=== PATIENT | female | born 1960 | race Hispanic/Latino ===

== ENCOUNTER 2020-02-21 11:48 | Emergency (ER) | payer SELFPAY ==
[2020-02-21 12:16] LABS: BASOPHILS % (AUTO) 0.2 % (0.0-5.0); EOSINOPHILS % (AUTO) 2.4 % (0.0-8.0); HEMATOCRIT 39.3 % (36-48); LYMPHOCYTES % (AUTO) 31.9 % (21.0-51.0); MEAN CORPUSCULAR HEMOGLOBIN 29.4 pg (27.0-33.0); MEAN CORPUSCULAR HGB CONC 33.1 g/dL (32.0-36.0); MEAN CORPUSCULAR VOLUME 88.9 fL (79-99); MONOCYTES % (AUTO) 6.2 % (3.0-13.0); NEUTROPHILS % (AUTO) 59.1 % (40.0-77.0); PLATELET COUNT (AUTO) 148 K/uL (130-400); RED BLOOD CELL COUNT(AUTO) 4.42 MIL/uL (4.00-5.50); RED CELL DISTRIBUTION WIDTH 12.7 % (11.0-15.5); WHITE BLOOD COUNT (AUTO) 4.6 K/uL (4.8-10.8)
[2020-02-21] MEDS ORDERED: NITROGLYCERIN 1GM/1 INCH PACKET TD ONE (12:18)
[2020-02-21] MEDS ORDERED: ASPIRIN 325 MG TABLET ONE (12:18)
[2020-02-21 12:28] LABS: CREATININE 0.5 mg/dL (0.5-1.5); POTASSIUM 4.3 mmol/L (3.5-5.1)
[2020-02-21 12:30] LABS: INR 0.94 (0.85-1.15); PARTIAL THROMBOPLASTIN TIME 27.8 SEC (26.3-35.5); PROTHROMBIN TIME 10.2 SEC (9.6-11.6)
[2020-02-21 12:31] LABS: APPEARANCE,URINE Clear (CLEAR); BILIRUBIN,URINE Negative (NEGATIVE); COLOR,URINE Yellow (YELLOW); GLUCOSE, URINE (UA) 250 mg/dL (NEGATIVE); KETONES,URINE Negative (NEGATIVE); LEUKOCYTE ESTERASE ,URINE Trace (NEGATIVE); NITRATE,URINE Negative (NEGATIVE); OCCULT BLOOD,URINE Negative (NEGATIVE); PROTEIN,URINE Negative (NEGATIVE)
[2020-02-21 12:33] LABS: ALBUMIN 3.3 g/dL (3.5-5.0); BILIRUBIN,TOTAL 0.7 mg/dL (0.2-1.0); TOTAL PROTEIN, SERUM 7.1 g/dL (6.0-8.3)
[2020-02-21 12:50] LABS: BACTERIA,URINE None Seen /HPF (None Seen); MUCUS,URINE Rare LPF (None Seen); RBC,URINE None Seen /HPF (0-1)
[2020-02-21 12:51] LABS: B-TYPE NATRIURETIC PEPTIDE 139 pg/mL (0-100)
== END 2020-02-21 15:51 | disposition home or self-care (01) ==
LOC: EDH 11:48
DX: R07.9 Chest pain, unspecified (principal); R05 Cough; E11.65 Type 2 diabetes mellitus with hyperglycemia; I10 Essential (primary) hypertension; F32.9 Major depressive disorder, single episode, unspecified; E78.5 Hyperlipidemia, unspecified
CPT/HCPCS: 36415; 71045; 80053; 81001; 82550; 83605; 83880; 84484; 85025; 85610; 85730; 87040; 87804; 93005

== ENCOUNTER → 2022-11-21 | Outpatient (CLI) | payer SELFPAY ==
[~2022-11-21] MED LIST: BUPR-49 PO; DAPA5TAB PO; GLIP10TA9 PO; METF-446 PO; OMEP20CA12 PO; SITA100T12 PO
[2022-11-21 12:27] LABS: ALBUMIN 3.5 g/dL (3.5-5.0); CREATININE 0.6 mg/dL (0.5-1.5); POTASSIUM 4.1 mmol/L (3.5-5.1); TOTAL PROTEIN, SERUM 7.9 g/dL (6.0-8.3)
== END | disposition home or self-care (01) ==
LOC: LAB 10:42
PROVIDERS: ATTEND Student in an Organized Health Care Education/Training Program
DX: R07.9 Chest pain, unspecified (principal)
CPT/HCPCS: 36415; 80053

== ENCOUNTER → 2022-11-28 | Outpatient (CLI) | payer SELFPAY ==
[~2022-11-28] MED LIST changes: +CEFTAZIDIME PENTAHYDRATE 1 GM/VIAL ONE; +DOXYCYCLINE 100MG+NS 250ML 250 ML IV ONE; +INSULIN HUMULIN R 100 UNIT/ML 3ML ONE; +IOHEXOL 350 MG/ML 100ML INFUS..BTL IV ONE; +IPRATROPIUM/ALBUTEROL SULFATE 3 ML SOLUTION IH ONE; +SODIUM CHLORIDE 3% FOR INHALATION 4 ML/AMP VIAL.NEB IH ONE; +SOLU-MEDROL 40MG VIAL ONE
== END | disposition home or self-care (01) ==
LOC: RAH 11:01
PROVIDERS: ATTEND Student in an Organized Health Care Education/Training Program
DX: R07.9 Chest pain, unspecified (principal)
CPT/HCPCS: 75574; Q9967; J0713; J1815; J2920; J3490

== ENCOUNTER 2023-08-06 01:09 | Emergency (ER) | payer OTHER ==
[~2023-08-06] VITALS: Ht 170.2 cm; Wt 137.0 kg
[~2023-08-06 01:09] MED LIST changes: -CEFTAZIDIME PENTAHYDRATE 1 GM/VIAL ONE; -DOXYCYCLINE 100MG+NS 250ML 250 ML IV ONE; -INSULIN HUMULIN R 100 UNIT/ML 3ML ONE; -IOHEXOL 350 MG/ML 100ML INFUS..BTL IV ONE; -IPRATROPIUM/ALBUTEROL SULFATE 3 ML SOLUTION IH ONE; -SODIUM CHLORIDE 3% FOR INHALATION 4 ML/AMP VIAL.NEB IH ONE; -SOLU-MEDROL 40MG VIAL ONE
[2023-08-06 03:16] LABS: BASOPHILS # (AUTO) 0.01 K/uL (0.00-0.20); BASOPHILS % (AUTO) 0.2 % (0.0-5.0); EOSINOPHILS # (AUTO) 0.09 K/uL (0.00-0.70); EOSINOPHILS % (AUTO) 1.8 % (0.0-8.0); IMMATURE GRANULOCYTE ABSOLUTE 0.02 K/uL (0-1); LYMPHOCYTES # (AUTO) 2.1 K/uL (1.0-4.8); LYMPHOCYTES % (AUTO) 41.5 % (21.0-51.0); MEAN CORPUSCULAR HGB CONC 32.5 g/dL (32.0-36.0); MEAN CORPUSCULAR VOLUME 92.3 fL (79-99); MONOCYTES # (AUTO) 0.4 K/uL (0.1-1.0); MONOCYTES % (AUTO) 7.5 % (3.0-13.0); NEUTROPHILS # (AUTO) 2.5 K/uL (1.8-7.7); NEUTROPHILS % (AUTO) 48.6 % (40.0-77.0); PLATELET COUNT (AUTO) 154 K/uL (130-400); RED CELL DISTRIBUTION WIDTH 13.5 % (11.0-15.5)
[2023-08-06 03:25] LABS: APPEARANCE,URINE CLEAR (CLEAR); BILIRUBIN,URINE NEGATIVE (NEGATIVE); COLOR,URINE COLORLESS (YELLOW); GLUCOSE, URINE (UA) NEGATIVE (NEGATIVE); KETONES,URINE NEGATIVE (NEGATIVE); LEUKOCYTE ESTERASE ,URINE NEGATIVE Leu/uL (NEGATIVE); NITRATE,URINE NEGATIVE (NEGATIVE); OCCULT BLOOD,URINE NEGATIVE (NEGATIVE); PH,URINE 6.5 (5.0-8.0); PROTEIN,URINE NEGATIVE (NEGATIVE); UROBILINOGEN,URINE 0.2 mg/dL (0.2-1.0)
[2023-08-06 03:25] LABS: CREATININE 0.5 mg/dL (0.5-1.5); POTASSIUM 3.4 mmol/L (3.5-5.1)
[2023-08-06 03:27] LABS: ADD UA MICROSCOPIC NO
[2023-08-06 03:29] LABS: ALBUMIN 3.4 g/dL (3.5-5.0); BILIRUBIN,TOTAL 0.8 mg/dL (0.2-1.0); TOTAL PROTEIN, SERUM 7.3 g/dL (6.0-8.3)
[2023-08-06] MEDS ORDERED: DIAZEPAM 5 MG/ML 2 ML SYG IVP ONE (05:00)
[2023-08-06] MEDS ORDERED: MORPHINE 4 MG SYG IVP ONE (05:00)
[2023-08-06] MEDS ORDERED: METOCLOPRAMIDE 10 MG/2 ML VIAL IVP ONE (05:00)
[2023-08-06] MEDS ORDERED: 0.9%NACL 1000ML 1,000 ML IV ONE (05:00)
[2023-08-06] MEDS ORDERED: FAMOTIDINE 20MG VIAL IV ONE (05:00)
[2023-08-06] MEDS ORDERED: ASPIRIN 325MG TAB PO ONE (06:30)
[2023-08-06] MEDS ORDERED: NITROGLYCERIN 1GM OINT 1 INCH/1GM TD ONE (06:30)
[2023-08-06] MEDS ORDERED: CLOPIDOGREL 300MG TAB PO ONE (06:30)
[2023-08-06] MEDS ORDERED: ENOXAPARIN SODIUM 80 MG/0.8 ML SQ ONE (06:30)
[2023-08-06 09:30] VITALS: BP 124/59; PULSE 56; RESP 18; O2SAT 99
== END 2023-08-06 10:07 | disposition home or self-care (01) ==
LOC: EDH 01:09
DX: R10.84 Generalized abdominal pain (principal); R77.8 Other specified abnormalities of plasma proteins; E03.9 Hypothyroidism, unspecified; E11.9 Type 2 diabetes mellitus without complications; I10 Essential (primary) hypertension; J45.909 Unspecified asthma, uncomplicated; Z79.84 Long term (current) use of oral hypoglycemic drugs; Z79.899 Other long term (current) drug therapy; Z98.890 Other specified postprocedural states
CPT/HCPCS: 99285; 74176; 96374; 96375; 76705; 71045; 96361; 82550; 84484 ×2; 80053; 83690; 85025; 83605; 81003; 36415; 93005 ×2; 96372; J3490; J7030; J3360; J2270; J1650; J2765

== ENCOUNTER 2023-09-22 17:30 | Inpatient (IN) | payer OTHER ==
[~2023-09-22] VITALS: Ht 172.7 cm; Wt 127.5 kg
[2023-09-22 18:02] LABS: APPEARANCE,URINE CLEAR (CLEAR); BILIRUBIN,URINE NEGATIVE (NEGATIVE); COLOR,URINE COLORLESS (YELLOW); GLUCOSE, URINE (UA) NEGATIVE (NEGATIVE); KETONES,URINE NEGATIVE (NEGATIVE); LEUKOCYTE ESTERASE ,URINE NEGATIVE Leu/uL (NEGATIVE); NITRATE,URINE NEGATIVE (NEGATIVE); OCCULT BLOOD,URINE NEGATIVE (NEGATIVE); PROTEIN,URINE NEGATIVE (NEGATIVE); UROBILINOGEN,URINE 0.2 mg/dL (0.2-1.0)
[2023-09-22 18:05] LABS: ADD UA MICROSCOPIC YES
[2023-09-22 18:11] LABS: HEMATOCRIT 37.1 % (36-48); MEAN CORPUSCULAR HEMOGLOBIN 29.2 pg (27.0-33.0); MEAN CORPUSCULAR HGB CONC 31.5 g/dL (32.0-36.0); MEAN CORPUSCULAR VOLUME 92.5 fL (79-99); RED BLOOD CELL COUNT(AUTO) 4.01 MIL/uL (4.00-5.50); RED CELL DISTRIBUTION WIDTH 13.9 % (11.0-15.5)
[2023-09-22 18:14] LABS: SQUAMOUS EPITHELIAL CELL,UR RARE /HPF (0-2); WBC,URINE 0-1 /HPF (0-1)
[2023-09-22 18:19] LABS: CREATININE 0.8 mg/dL (0.5-1.5)
[2023-09-22 18:28] LABS: ALBUMIN 3.6 g/dL (3.5-5.0); BILIRUBIN,TOTAL 0.7 mg/dL (0.2-1.0); TOTAL PROTEIN, SERUM 7.7 g/dL (6.0-8.3)
[2023-09-22] MEDS ORDERED: DILTIAZEM 25MG INJ IVP ONE (19:00)
[2023-09-22] MEDS ORDERED: ENOXAPARIN SODIUM 80 MG/0.8 ML SQ ONE (19:00)
[2023-09-22] MEDS ORDERED: AMIODARONE 150MG VIAL IV ONE (20:52)
[2023-09-22] MEDS ORDERED: AMIODARONE 150MG VIAL 150 MG in DEXTROSE 5%-WATER 100 ML IV SCH (21:00)
[2023-09-22] MEDS ORDERED: DILTIAZEM 125 MG/25 ML INJ 125 MG in 0.9%NACL 100ML 100 ML IV SCH (21:30)
[2023-09-22] MEDS ORDERED: METOPROLOL TARTRATE 25 MG TAB PO ONE (22:00)
[2023-09-22] MEDS ORDERED: MORPHINE 4 MG SYG IV PRN (22:30)
[2023-09-22] MEDS ORDERED: MORPHINE 2 MG SYG IV PRN (22:30)
[2023-09-22] MEDS ORDERED: ONDANSETRON 4MG INJ IV PRN (22:30)
[2023-09-22] MEDS ORDERED: POTASSIUM CHLORIDE 20MEQ/100ML 100 ML IV PRN (22:30)
[2023-09-22] MEDS ORDERED: ACETAMINOPHEN 325 MG TAB PO PRN (22:30)
[2023-09-22] MEDS ORDERED: ASPIRIN 81MG CHEW TAB PO ONE (22:30)
[2023-09-22] MEDS ORDERED: NITROGLYCERIN 0.4 MG SL TAB SL PRN (22:30)
[2023-09-22 23:08] LABS: BASOPHILS # (AUTO) 0.02 K/uL (0.00-0.20); BASOPHILS % (AUTO) 0.4 % (0.0-5.0); EOSINOPHILS # (AUTO) 0.09 K/uL (0.00-0.70); EOSINOPHILS % (AUTO) 1.7 % (0.0-8.0); HEMATOCRIT 35.3 % (36-48); IMMATURE GRANULOCYTE ABSOLUTE 0.02 K/uL (0-1); LYMPHOCYTES # (AUTO) 2.2 K/uL (1.0-4.8); LYMPHOCYTES % (AUTO) 41.3 % (21.0-51.0); MEAN CORPUSCULAR HEMOGLOBIN 29.3 pg (27.0-33.0); MEAN CORPUSCULAR HGB CONC 31.7 g/dL (32.0-36.0); MEAN CORPUSCULAR VOLUME 92.4 fL (79-99); MONOCYTES # (AUTO) 0.4 K/uL (0.1-1.0); MONOCYTES % (AUTO) 7.1 % (3.0-13.0); NEUTROPHILS # (AUTO) 2.7 K/uL (1.8-7.7); NEUTROPHILS % (AUTO) 49.1 % (40.0-77.0); PLATELET COUNT (AUTO) 154 K/uL (130-400); RED BLOOD CELL COUNT(AUTO) 3.82 MIL/uL (4.00-5.50); RED CELL DISTRIBUTION WIDTH 14.1 % (11.0-15.5); WHITE BLOOD COUNT (AUTO) 5.4 K/uL (4.8-10.8)
[2023-09-22 23:18] LABS: INR 0.97 (0.85-1.15); PROTHROMBIN TIME 11.3 SEC (9.6-11.6)
[2023-09-22] MEDS ORDERED: HEPARIN 5,000 UNIT VIAL SQ PRN (23:30)
[2023-09-22] MEDS ORDERED: HEPARIN 25,000 UNITS/250ML D5W 250 ML IV SCH (23:30)
[2023-09-22 23:42] LABS: B-TYPE NATRIURETIC PEPTIDE 316 pg/mL (0-100)
[2023-09-23] VITALS (10 sets, daily range): BP systolic 125–162; BP diastolic 75–108; PULSE 54–158; RESP 18–20; O2SAT 100
[2023-09-23] MEDS: ACETAMINOPHEN 325 MG TAB PO PRN (00:38)
[2023-09-23] MEDS ORDERED: LOSA50TA64 PO (00:46)
[2023-09-23] MEDS ORDERED: HYDR100T27 PO (00:46)
[2023-09-23] MEDS ORDERED: LEVO50TA4 PO (00:46)
[2023-09-23] MEDS ORDERED: PIOG30TA70 PO (00:46)
[2023-09-23] MEDS ORDERED: GABA300S3 PO (00:46)
[2023-09-23] MEDS ORDERED: GABA-534 PO (00:46)
[2023-09-23] MEDS ORDERED: BENZ-226 PO (00:55)
[2023-09-23] MEDS ORDERED: CELE100 PO (00:55)
[2023-09-23] MEDS ORDERED: VITAD50000 PO (00:55)
[2023-09-23] MEDS ORDERED: CARV25TA PO (00:55)
[2023-09-23] MEDS ORDERED: HYDR25TA PO (00:55)
[2023-09-23 01:24] LABS: BASOPHILS # (AUTO) 0.01 K/uL (0.00-0.20); BASOPHILS % (AUTO) 0.2 % (0.0-5.0); EOSINOPHILS # (AUTO) 0.08 K/uL (0.00-0.70); EOSINOPHILS % (AUTO) 1.7 % (0.0-8.0); HEMATOCRIT 35.4 % (36-48); IMMATURE GRANULOCYTE ABSOLUTE 0.01 K/uL (0-1); LYMPHOCYTES # (AUTO) 2.2 K/uL (1.0-4.8); LYMPHOCYTES % (AUTO) 46.1 % (21.0-51.0); MEAN CORPUSCULAR HEMOGLOBIN 29.5 pg (27.0-33.0); MEAN CORPUSCULAR HGB CONC 31.6 g/dL (32.0-36.0); MEAN CORPUSCULAR VOLUME 93.2 fL (79-99); MONOCYTES # (AUTO) 0.3 K/uL (0.1-1.0); MONOCYTES % (AUTO) 6.9 % (3.0-13.0); NEUTROPHILS # (AUTO) 2.2 K/uL (1.8-7.7); NEUTROPHILS % (AUTO) 44.9 % (40.0-77.0); PLATELET COUNT (AUTO) 163 K/uL (130-400); RED CELL DISTRIBUTION WIDTH 14.1 % (11.0-15.5); WHITE BLOOD COUNT (AUTO) 4.8 K/uL (4.8-10.8)
[2023-09-23 01:32] LABS: HEMOGLOBIN A1C 7.6 % (4.0-6.0)
[2023-09-23 01:35] LABS: CREATININE 0.8 mg/dL (0.5-1.5); POTASSIUM 3.7 mmol/L (3.5-5.1)
[2023-09-23 01:47] LABS: MAGNESIUM 1.5 mg/dL (1.80-2.40); PHOSPHORUS 4.6 mg/dL (2.5-4.9); THYROID STIMULATING HORMONE 2.18 uIU/mL (0.36-3.74)
[2023-09-23] MEDS: MAGNESIUM 2GM PREMIX 50ML 50 ML IV PRN (04:23)
[2023-09-23] MEDS: KCL 20 MEQ ERTAB PO PRN ×2 (04:24→17:36)
[2023-09-23] MEDS: INSULIN HUMULIN R 100 UNIT/ML 3ML SQ SCH ×4 (06:25→20:06)
[2023-09-23] MEDS ORDERED: MAGNESIUM 2GM PREMIX 50ML 50 ML IV SCH (07:00)
[2023-09-23] MEDS ORDERED: ENOXAPARIN SODIUM 100 MG/1 ML SQ SCH (09:00)
[2023-09-23] MEDS: FAMOTIDINE 20MG TAB PO SCH (09:04)
[2023-09-23] MEDS: ASPIRIN 81MG CHEW TAB PO SCH (09:04)
[2023-09-23] MEDS ORDERED: LACTULOSE 20 GM/30 ML UDCUP PO ONE (14:30)
[2023-09-23] MEDS ORDERED: METOPROLOL SUCCINATE 50 MG TAB.SR.24H PO ONE (14:30)
[2023-09-23 15:09] LABS: AMPHET/METH SCREEN,URINE NEGATIVE (NEGATIVE); BARBITURATE SCREEN, URINE NEGATIVE (NEGATIVE); BENZODIAZEPINES SCREEN,URINE NEGATIVE (NEGATIVE); CANNABINOID SCREEN,URINE NEGATIVE (NEGATIVE); COCAINE SCREEN,URINE NEGATIVE (NEGATIVE); OPIATE SCREEN,URINE NEGATIVE (NEGATIVE); PHENCYCLIDINE SCREEN,URINE NEGATIVE (NEGATIVE)
[2023-09-23] MEDS ORDERED: REGADENOSON 0.4 MG/5 ML PF SYG IVP SCH (19:00)
[2023-09-23] MEDS: APIXABAN 5 MG TABLET PO SCH (20:20)
[2023-09-23] MEDS ORDERED: METOPROLOL TARTRATE 1 MG/ML 5ML VIAL IV ONE (23:00)
[2023-09-24] VITALS (11 sets, daily range): BP systolic 114–163; BP diastolic 69–112; PULSE 95–132; RESP 16–20; O2SAT 95–98
[2023-09-24] MEDS ORDERED: AMIODARONE 900MG VIAL 540 MG in DEXTROSE 5%-WATER 300 ML IV STA (00:02)
[2023-09-24] MEDS ORDERED: AMIODARONE 900MG VIAL 360 MG in DEXTROSE 5%-WATER 200 ML IV SCH (00:30)
[2023-09-24 03:53] LABS: ALBUMIN 3.4 g/dL (3.5-5.0); BILIRUBIN,TOTAL 1.3 mg/dL (0.2-1.0); CREATININE 0.8 mg/dL (0.5-1.5); HEMATOCRIT 37.1 % (36-48); MAGNESIUM 1.6 mg/dL (1.80-2.40); MEAN CORPUSCULAR HEMOGLOBIN 29.5 pg (27.0-33.0); MEAN CORPUSCULAR HGB CONC 31.5 g/dL (32.0-36.0); MEAN CORPUSCULAR VOLUME 93.5 fL (79-99); POTASSIUM 4.2 mmol/L (3.5-5.1); RED BLOOD CELL COUNT(AUTO) 3.97 MIL/uL (4.00-5.50); TOTAL PROTEIN, SERUM 7.5 g/dL (6.0-8.3); WHITE BLOOD COUNT (AUTO) 6.4 K/uL (4.8-10.8)
[2023-09-24] MEDS: INSULIN HUMULIN R 100 UNIT/ML 3ML SQ SCH ×4 (07:24→20:33)
[2023-09-24] MEDS: ASPIRIN 81MG CHEW TAB PO SCH (08:19)
[2023-09-24] MEDS: APIXABAN 5 MG TABLET PO SCH ×3 (08:19→20:21)
[2023-09-24] MEDS: FAMOTIDINE 20MG TAB PO SCH ×2 (08:20→10:56)
[2023-09-24] MEDS ORDERED: METOPROLOL SUCCINATE 50 MG TAB.SR.24H PO SCH ×2 (09:00→09:30)
[2023-09-24] MEDS: ACETAMINOPHEN 325 MG TAB PO PRN (10:56)
[2023-09-24] MEDS: FUROSEMIDE 20MG VIAL IV SCH ×2 (10:58→22:50)
[2023-09-24] MEDS: MAGNESIUM 2GM PREMIX 50ML 50 ML IV PRN (11:00)
[2023-09-24] MEDS ORDERED: MAGNESIUM 2GM PREMIX 50ML 50 ML IV SCH (11:30)
[2023-09-24] MEDS: METOPROLOL TARTRATE 25 MG TAB PO SCH ×2 (13:41→20:21)
[2023-09-25] VITALS (24 sets, daily range): BP systolic 108–167; BP diastolic 59–114; PULSE 67–137; RESP 13–35; O2SAT 96–99
[2023-09-25 04:48] LABS: HEMATOCRIT 35.6 % (36-48); MEAN CORPUSCULAR HEMOGLOBIN 29.5 pg (27.0-33.0); RED BLOOD CELL COUNT(AUTO) 3.87 MIL/uL (4.00-5.50); WHITE BLOOD COUNT (AUTO) 5.8 K/uL (4.8-10.8)
[2023-09-25 05:17] LABS: ALBUMIN 3.6 g/dL (3.5-5.0); CREATININE 0.8 mg/dL (0.5-1.5); MAGNESIUM 1.3 mg/dL (1.80-2.40); POTASSIUM 3.1 mmol/L (3.5-5.1); TOTAL PROTEIN, SERUM 7.9 g/dL (6.0-8.3)
[2023-09-25] MEDS: KCL 20 MEQ ERTAB PO PRN (05:30)
[2023-09-25] MEDS: MAGNESIUM 2GM PREMIX 50ML 50 ML IV PRN ×2 (05:32→09:45)
[2023-09-25] MEDS: INSULIN HUMULIN R 100 UNIT/ML 3ML SQ SCH ×4 (06:53→20:15)
[2023-09-25] MEDS: POTASSIUM CHLORIDE 10% ELIXIR 20 MEQ/15 ML UDCUP PO PRN ×2 (07:25→09:45)
[2023-09-25] MEDS ORDERED: POTASSIUM CHLORIDE 20MEQ/100ML 100 ML IV ONE (07:30)
[2023-09-25] MEDS ORDERED: MAGNESIUM 2GM PREMIX 50ML 50 ML IV SCH (07:30)
[2023-09-25] MEDS ORDERED: KCL 20 MEQ ERTAB PO ONE (07:30)
[2023-09-25 07:35] LABS: AMYLASE 18 U/L (25-115)
[2023-09-25] MEDS ORDERED: KCL 20 MEQ ERTAB PO SCH (09:00)
[2023-09-25 09:15] LABS: MAGNESIUM 1.7 mg/dL (1.80-2.40); POTASSIUM 3.8 mmol/L (3.5-5.1)
[2023-09-25] MEDS ORDERED: AMIODARONE 150MG VIAL 150 MG in DEXTROSE 5%-WATER 100 ML IV SCH (09:30)
[2023-09-25] MEDS ORDERED: AMIODARONE 900MG VIAL 360 MG in DEXTROSE 5%-WATER 200 ML IV SCH (09:30)
[2023-09-25] MEDS ORDERED: METOCLOPRAMIDE 10 MG/2 ML VIAL IVP ONE (09:30)
[2023-09-25] MEDS: AZITHROMYCIN 500MG+NS 250ML 250 ML IVPB SCH (09:44)
[2023-09-25] MEDS: FUROSEMIDE 20MG VIAL IV SCH (09:44)
[2023-09-25] MEDS: APIXABAN 5 MG TABLET PO SCH (09:44)
[2023-09-25] MEDS: FAMOTIDINE 20MG TAB PO SCH (09:44)
[2023-09-25] MEDS: ASPIRIN 81MG CHEW TAB PO SCH (09:44)
[2023-09-25] MEDS: METOPROLOL TARTRATE 25 MG TAB PO SCH (09:45)
[2023-09-25] MEDS: CEFTRIAXONE 1G VIAL IVPB SCH (10:53)
[2023-09-25] MEDS ORDERED: FUROSEMIDE 20MG VIAL IV ONE (12:00)
[2023-09-25] MEDS ORDERED: LIDOCAINE PF 100MG/5ML (2%) SYRINGE 5ML ONE (14:48)
[2023-09-25] MEDS ORDERED: PROPOFOL 10 MG/ML 20ML VIAL IV ONE (14:48)
[2023-09-25 15:21] LABS: SARS-CoV-2, RNA, NAAT NEGATIVE SARS CoV-2 (NEGATIVE)
[2023-09-25 15:22] LABS: INFLUENZA TYPE A Negative For Type A (NEGATIVE); INFLUENZA TYPE B Negative For Type B (NEGATIVE)
[2023-09-25] MEDS ORDERED: PHARMACY COMMUNICATION MISC SCH (15:30)
[2023-09-25] MEDS ORDERED: AMIODARONE 900MG VIAL 540 MG in DEXTROSE 5%-WATER 300 ML IV SCH (15:30)
[2023-09-25 15:47] LABS: ABG HCO3 26.5 mmol/L (21.0-28.0); ABG OXYGEN SATURATION 98.3 % (95.0-99.0); ABG PCO2 41 mmHg (32-45); ABG PH 7.429 (7.35-7.450); PO2, ARTERIAL BG 115.5 mmHg (83.0-108.0); VENT MODE, BG BIPAP 14-6 (ROOM AIR)
[2023-09-25] MEDS: DILTIAZEM 25MG INJ IVP ONE ×4 (18:20→19:17)
[2023-09-25] MEDS: DILTIAZEM 125 MG/25 ML INJ 125 MG in 0.9%NACL 100ML 100 ML IV SCH (19:20)
[2023-09-25] MEDS: FUROSEMIDE 40MG VIAL IV SCH (20:14)
[2023-09-25] MEDS: METOPROLOL TARTRATE 50 MG TAB PO SCH (20:15)
[2023-09-25] MEDS ORDERED: HEPARIN 5,000 UNIT VIAL IV SCH (22:30)
[2023-09-25] MEDS ORDERED: HEPARIN 5,000 UNIT VIAL ONE (22:33)
[2023-09-25] MEDS: HEPARIN 25,000 UNITS/250ML D5W 250 ML IV SCH (22:45)
[2023-09-26] VITALS (15 sets, daily range): BP systolic 114–157; BP diastolic 63–91; PULSE 66–119; RESP 12–24; O2SAT 95–99
[2023-09-26] MEDS: IPRATROPIUM 0.5 MG/2.5 ML INH IH SCH ×5 (00:21→23:11)
[2023-09-26 05:10] LABS: HEMATOCRIT 35.3 % (36-48); MEAN CORPUSCULAR HGB CONC 31.2 g/dL (32.0-36.0); MEAN CORPUSCULAR VOLUME 93.1 fL (79-99); RED BLOOD CELL COUNT(AUTO) 3.79 MIL/uL (4.00-5.50); WHITE BLOOD COUNT (AUTO) 5.3 K/uL (4.8-10.8)
[2023-09-26 05:23] LABS: INR 1.07 (0.85-1.15); PROTHROMBIN TIME 12.4 SEC (9.6-11.6)
[2023-09-26 05:32] LABS: ALBUMIN 3.3 g/dL (3.5-5.0); BILIRUBIN,TOTAL 1.6 mg/dL (0.2-1.0); CREATININE 0.9 mg/dL (0.5-1.5); MAGNESIUM 1.6 mg/dL (1.80-2.40); POTASSIUM 3.1 mmol/L (3.5-5.1); TOTAL PROTEIN, SERUM 7.5 g/dL (6.0-8.3)
[2023-09-26] MEDS: KCL 20 MEQ ERTAB PO PRN (05:40)
[2023-09-26 05:45] LABS: PARTIAL THROMBOPLASTIN TIME > 139.0 SEC (26.3-35.5)
[2023-09-26] MEDS: MAGNESIUM 2GM PREMIX 50ML 50 ML IV PRN (05:52)
[2023-09-26] MEDS: INSULIN HUMULIN R 100 UNIT/ML 3ML SQ SCH ×4 (07:30→20:14)
[2023-09-26] MEDS ORDERED: POTASSIUM CHLORIDE 20MEQ/100ML 100 ML IV ONE (07:30)
[2023-09-26] MEDS ORDERED: KCL 20 MEQ ERTAB PO ONE (08:30)
[2023-09-26] MEDS ORDERED: DILTIAZEM 180MG SR CAP PO SCH (09:00)
[2023-09-26] MEDS: AZITHROMYCIN 500MG+NS 250ML 250 ML IVPB SCH (09:24)
[2023-09-26] MEDS: FUROSEMIDE 40MG VIAL IV SCH ×2 (09:26→20:12)
[2023-09-26] MEDS: METOPROLOL TARTRATE 50 MG TAB PO SCH ×3 (09:34→20:12)
[2023-09-26] MEDS: FAMOTIDINE 20MG TAB PO SCH (09:34)
[2023-09-26] MEDS: ASPIRIN 81MG CHEW TAB PO SCH (09:34)
[2023-09-26] MEDS: KCL 20 MEQ ERTAB PO SCH (09:35)
[2023-09-26] MEDS: DILTIAZEM 125 MG/25 ML INJ 125 MG in 0.9%NACL 100ML 100 ML IV SCH (10:23)
[2023-09-26] MEDS: HEPARIN 25,000 UNITS/250ML D5W 250 ML IV SCH (12:34)
[2023-09-26] MEDS: CEFTRIAXONE 1G VIAL IVPB SCH (12:38)
[2023-09-26] MEDS ORDERED: WARFARIN SODIUM 5 MG TAB PO ONE ×2 (16:00→16:05)
[2023-09-26] MEDS ORDERED: GUAIFENESIN-DM 200/20 MG 10 ML PO PRN (22:15)
[2023-09-27] VITALS (14 sets, daily range): BP systolic 89–141; BP diastolic 53–81; PULSE 67–123; RESP 16–23; O2SAT 95–99
[2023-09-27] MEDS: HEPARIN 25,000 UNITS/250ML D5W 250 ML IV SCH ×2 (05:38→21:02)
[2023-09-27 06:34] LABS: HEMATOCRIT 34.8 % (36-48); MEAN CORPUSCULAR HEMOGLOBIN 29.3 pg (27.0-33.0); MEAN CORPUSCULAR HGB CONC 31.6 g/dL (32.0-36.0); MEAN CORPUSCULAR VOLUME 92.6 fL (79-99); RED BLOOD CELL COUNT(AUTO) 3.76 MIL/uL (4.00-5.50); RED CELL DISTRIBUTION WIDTH 13.9 % (11.0-15.5); WHITE BLOOD COUNT (AUTO) 4.3 K/uL (4.8-10.8)
[2023-09-27 06:46] LABS: INR 1.03 (0.85-1.15); PROTHROMBIN TIME 11.9 SEC (9.6-11.6)
[2023-09-27 06:52] LABS: ALBUMIN 3.4 g/dL (3.5-5.0); BILIRUBIN,TOTAL 1.5 mg/dL (0.2-1.0); CREATININE 0.8 mg/dL (0.5-1.5); MAGNESIUM 1.6 mg/dL (1.80-2.40); POTASSIUM 3.3 mmol/L (3.5-5.1); TOTAL PROTEIN, SERUM 7.6 g/dL (6.0-8.3)
[2023-09-27] MEDS: IPRATROPIUM 0.5 MG/2.5 ML INH IH SCH ×4 (07:14→23:32)
[2023-09-27] MEDS: INSULIN HUMULIN R 100 UNIT/ML 3ML SQ SCH ×4 (07:24→20:16)
[2023-09-27] MEDS: FAMOTIDINE 20MG TAB PO SCH (10:24)
[2023-09-27] MEDS: AZITHROMYCIN 500MG+NS 250ML 250 ML IVPB SCH (10:24)
[2023-09-27] MEDS: METOPROLOL TARTRATE 50 MG TAB PO SCH ×3 (10:24→20:13)
[2023-09-27] MEDS: FUROSEMIDE 40MG VIAL IV SCH ×2 (10:24→20:13)
[2023-09-27] MEDS: ASPIRIN 81MG CHEW TAB PO SCH (10:24)
[2023-09-27] MEDS: KCL 20 MEQ ERTAB PO SCH (10:27)
[2023-09-27] MEDS: DILTIAZEM 120MG SR CAP PO SCH (10:52)
[2023-09-27] MEDS: CEFTRIAXONE 1G VIAL IVPB SCH (12:37)
[2023-09-27] MEDS: POTASSIUM CHLORIDE 10% ELIXIR 20 MEQ/15 ML UDCUP PO PRN ×2 (20:14→22:17)
[2023-09-27] MEDS: MAGNESIUM 2GM PREMIX 50ML 50 ML IV SCH (20:15)
[2023-09-27] MEDS ORDERED: MAG/ALUM/SIMETH 30 ML UDCUP PO ONE (22:00)
[2023-09-28] VITALS (14 sets, daily range): BP systolic 109–137; BP diastolic 71–101; PULSE 53–124; RESP 15–22; O2SAT 95–100
[2023-09-28 04:08] LABS: BASOPHILS # (AUTO) 0.01 K/uL (0.00-0.20); BASOPHILS % (AUTO) 0.3 % (0.0-5.0); EOSINOPHILS # (AUTO) 0.15 K/uL (0.00-0.70); EOSINOPHILS % (AUTO) 4.2 % (0.0-8.0); HEMATOCRIT 34.4 % (36-48); IMMATURE GRANULOCYTE ABSOLUTE 0.01 K/uL (0-1); LYMPHOCYTES # (AUTO) 1.4 K/uL (1.0-4.8); LYMPHOCYTES % (AUTO) 38.9 % (21.0-51.0); MEAN CORPUSCULAR HEMOGLOBIN 29.2 pg (27.0-33.0); MEAN CORPUSCULAR HGB CONC 31.1 g/dL (32.0-36.0); MONOCYTES # (AUTO) 0.3 K/uL (0.1-1.0); MONOCYTES % (AUTO) 9.6 % (3.0-13.0); NEUTROPHILS # (AUTO) 1.7 K/uL (1.8-7.7); NEUTROPHILS % (AUTO) 46.7 % (40.0-77.0); PLATELET COUNT (AUTO) 151 K/uL (130-400); RED BLOOD CELL COUNT(AUTO) 3.66 MIL/uL (4.00-5.50); RED CELL DISTRIBUTION WIDTH 13.8 % (11.0-15.5); WHITE BLOOD COUNT (AUTO) 3.6 K/uL (4.8-10.8)
[2023-09-28 04:18] LABS: INR 0.98 (0.85-1.15); PROTHROMBIN TIME 11.4 SEC (9.6-11.6)
[2023-09-28 04:19] LABS: PARTIAL THROMBOPLASTIN TIME 80.6 SEC (26.3-35.5)
[2023-09-28 04:28] LABS: CREATININE 0.9 mg/dL (0.5-1.5); POTASSIUM 3.6 mmol/L (3.5-5.1)
[2023-09-28] MEDS: IPRATROPIUM 0.5 MG/2.5 ML INH IH SCH ×4 (06:23→23:48)
[2023-09-28] MEDS: INSULIN HUMULIN R 100 UNIT/ML 3ML SQ SCH ×4 (06:49→20:34)
[2023-09-28] MEDS ORDERED: KCL 20 MEQ ERTAB PO ONE (07:30)
[2023-09-28] MEDS: FUROSEMIDE 40MG VIAL IV SCH ×2 (08:29→20:37)
[2023-09-28] MEDS: ASPIRIN 81MG CHEW TAB PO SCH (08:30)
[2023-09-28] MEDS: FAMOTIDINE 20MG TAB PO SCH (08:30)
[2023-09-28] MEDS: METOPROLOL TARTRATE 50 MG TAB PO SCH (08:30)
[2023-09-28] MEDS: DILTIAZEM 120MG SR CAP PO SCH (08:31)
[2023-09-28] MEDS: AZITHROMYCIN 500MG+NS 250ML 250 ML IVPB SCH (08:32)
[2023-09-28] MEDS: KCL 20 MEQ ERTAB PO SCH (08:32)
[2023-09-28] MEDS ORDERED: METOPROLOL SUCCINATE 50 MG TAB.SR.24H PO SCH (09:30)
[2023-09-28] MEDS ORDERED: WARFARIN SODIUM 5 MG TAB PO ONE (09:30)
[2023-09-28 09:50] LABS: INR 1.01 (0.85-1.15); PROTHROMBIN TIME 11.7 SEC (9.6-11.6)
[2023-09-28 09:51] LABS: PARTIAL THROMBOPLASTIN TIME 72.3 SEC (26.3-35.5)
[2023-09-28] MEDS: HEPARIN 25,000 UNITS/250ML D5W 250 ML IV SCH ×2 (10:07→15:54)
[2023-09-29] VITALS (16 sets, daily range): BP systolic 104–176; BP diastolic 69–86; PULSE 46–72; RESP 16–24; O2SAT 96–98
[2023-09-29 03:55] LABS: BASOPHILS # (AUTO) 0.01 K/uL (0.00-0.20); BASOPHILS % (AUTO) 0.3 % (0.0-5.0); EOSINOPHILS # (AUTO) 0.13 K/uL (0.00-0.70); EOSINOPHILS % (AUTO) 3.7 % (0.0-8.0); HEMATOCRIT 31.8 % (36-48); IMMATURE GRANULOCYTE ABSOLUTE 0.01 K/uL (0-1); LYMPHOCYTES # (AUTO) 1.8 K/uL (1.0-4.8); LYMPHOCYTES % (AUTO) 49.7 % (21.0-51.0); MEAN CORPUSCULAR HEMOGLOBIN 29.5 pg (27.0-33.0); MEAN CORPUSCULAR HGB CONC 31.8 g/dL (32.0-36.0); MONOCYTES # (AUTO) 0.3 K/uL (0.1-1.0); MONOCYTES % (AUTO) 9.6 % (3.0-13.0); NEUTROPHILS # (AUTO) 1.3 K/uL (1.8-7.7); NEUTROPHILS % (AUTO) 36.4 % (40.0-77.0); NUCLEATED RED BLOOD CELLS 0.6 % (0.0-0.19); PLATELET COUNT (AUTO) 147 K/uL (130-400); RED BLOOD CELL COUNT(AUTO) 3.42 MIL/uL (4.00-5.50); WHITE BLOOD COUNT (AUTO) 3.6 K/uL (4.8-10.8)
[2023-09-29 04:07] LABS: INR 1.03 (0.85-1.15); PROTHROMBIN TIME 11.9 SEC (9.6-11.6)
[2023-09-29 04:19] LABS: ALBUMIN 3.1 g/dL (3.5-5.0); BILIRUBIN,TOTAL 0.5 mg/dL (0.2-1.0); CREATININE 0.9 mg/dL (0.5-1.5); MAGNESIUM 1.8 mg/dL (1.80-2.40); POTASSIUM 3.6 mmol/L (3.5-5.1)
[2023-09-29] MEDS: KCL 20 MEQ ERTAB PO PRN ×2 (05:24→09:27)
[2023-09-29] MEDS: IPRATROPIUM 0.5 MG/2.5 ML INH IH SCH ×4 (06:40→23:23)
[2023-09-29] MEDS: INSULIN HUMULIN R 100 UNIT/ML 3ML SQ SCH ×4 (07:16→20:43)
[2023-09-29] MEDS: FUROSEMIDE 40MG VIAL IV SCH (07:51)
[2023-09-29] MEDS: KCL 20 MEQ ERTAB PO SCH (07:56)
[2023-09-29] MEDS: FAMOTIDINE 20MG TAB PO SCH (07:56)
[2023-09-29] MEDS: MAGNESIUM 2GM PREMIX 50ML 50 ML IV SCH (08:30)
[2023-09-29] MEDS: DILTIAZEM 120MG SR CAP PO SCH (09:00)
[2023-09-29] MEDS: ASPIRIN 81MG CHEW TAB PO SCH (09:27)
[2023-09-29] MEDS: HEPARIN 25,000 UNITS/250ML D5W 250 ML IV SCH (14:51)
[2023-09-29] MEDS ORDERED: WARFARIN SODIUM 7.5 MG TAB PO SCH (21:00)
[2023-09-29] MEDS: METOPROLOL TARTRATE 25 MG TAB PO SCH (21:19)
[2023-09-29] MEDS ORDERED: MAGNESIUM HYDROXIDE 30 ML/UDCUP PO PRN (23:00)
[2023-09-30] VITALS (14 sets, daily range): BP systolic 140–190; BP diastolic 69–105; PULSE 45–64; RESP 18–22; O2SAT 96–100
[2023-09-30 04:40] LABS: BASOPHILS # (AUTO) 0.01 K/uL (0.00-0.20); BASOPHILS % (AUTO) 0.3 % (0.0-5.0); EOSINOPHILS # (AUTO) 0.11 K/uL (0.00-0.70); EOSINOPHILS % (AUTO) 3.2 % (0.0-8.0); HEMATOCRIT 32.6 % (36-48); IMMATURE GRANULOCYTE ABSOLUTE 0.01 K/uL (0-1); LYMPHOCYTES # (AUTO) 1.6 K/uL (1.0-4.8); LYMPHOCYTES % (AUTO) 47.1 % (21.0-51.0); MEAN CORPUSCULAR HEMOGLOBIN 29.4 pg (27.0-33.0); MEAN CORPUSCULAR HGB CONC 31.6 g/dL (32.0-36.0); MEAN CORPUSCULAR VOLUME 93.1 fL (79-99); MONOCYTES # (AUTO) 0.3 K/uL (0.1-1.0); MONOCYTES % (AUTO) 8.4 % (3.0-13.0); NEUTROPHILS # (AUTO) 1.4 K/uL (1.8-7.7); NEUTROPHILS % (AUTO) 40.7 % (40.0-77.0); PLATELET COUNT (AUTO) 162 K/uL (130-400); WHITE BLOOD COUNT (AUTO) 3.5 K/uL (4.8-10.8)
[2023-09-30 05:02] LABS: ALBUMIN 3.1 g/dL (3.5-5.0); BILIRUBIN,TOTAL 0.5 mg/dL (0.2-1.0); CREATININE 0.9 mg/dL (0.5-1.5); MAGNESIUM 1.9 mg/dL (1.80-2.40); POTASSIUM 4.4 mmol/L (3.5-5.1); TOTAL PROTEIN, SERUM 7.2 g/dL (6.0-8.3)
[2023-09-30 05:39] LABS: INR 1.03 (0.85-1.15); PROTHROMBIN TIME 11.1 SEC (9.6-11.6)
[2023-09-30] MEDS: INSULIN HUMULIN R 100 UNIT/ML 3ML SQ SCH ×4 (05:48→20:01)
[2023-09-30] MEDS: IPRATROPIUM 0.5 MG/2.5 ML INH IH SCH ×4 (06:42→23:30)
[2023-09-30] MEDS: FUROSEMIDE 20 MG TABLET PO SCH (09:42)
[2023-09-30] MEDS: FAMOTIDINE 20MG TAB PO SCH (09:42)
[2023-09-30] MEDS: ASPIRIN 81MG CHEW TAB PO SCH (09:43)
[2023-09-30] MEDS: METOPROLOL TARTRATE 25 MG TAB PO SCH ×2 (09:45→20:11)
[2023-09-30 16:20] LABS: INR 1.04 (0.85-1.15)
[2023-09-30 16:21] LABS: PARTIAL THROMBOPLASTIN TIME 69.7 SEC (26.3-35.5)
[2023-09-30] MEDS ORDERED: WARFARIN SODIUM 5 MG TAB PO SCH (21:00)
[2023-10-01] VITALS (17 sets, daily range): BP systolic 132–161; BP diastolic 65–101; PULSE 49–78; RESP 17–20; O2SAT 96–98
[2023-10-01] MEDS ORDERED: LOSARTAN 50 MG TABLET ONE (00:01)
[2023-10-01] MEDS ORDERED: HYDRALAZINE 25MG TABLET ONE (00:01)
[2023-10-01] MEDS ORDERED: LOSARTAN 50 MG TABLET PO SCH (00:30)
[2023-10-01] MEDS ORDERED: HYDRALAZINE 25MG TABLET PO SCH (00:30)
[2023-10-01] MEDS ORDERED: HYDRALAZINE 20MG/ML VIAL ONE (00:42)
[2023-10-01] MEDS ORDERED: HYDRALAZINE 20MG/ML VIAL IV PRN (01:00)
[2023-10-01] MEDS: HEPARIN 25,000 UNITS/250ML D5W 250 ML IV SCH (02:02)
[2023-10-01] MEDS: ACETAMINOPHEN 325 MG TAB PO PRN (03:43)
[2023-10-01 04:22] LABS: INR 1.09 (0.85-1.15); PROTHROMBIN TIME 12.6 SEC (9.6-11.6)
[2023-10-01 04:23] LABS: PARTIAL THROMBOPLASTIN TIME 71.1 SEC (26.3-35.5)
[2023-10-01] MEDS: INSULIN HUMULIN R 100 UNIT/ML 3ML SQ SCH ×4 (05:42→20:47)
[2023-10-01] MEDS: LEVOTHYROXINE 50 MCG TABLET PO SCH (05:49)
[2023-10-01] MEDS: IPRATROPIUM 0.5 MG/2.5 ML INH IH SCH ×4 (06:28→23:26)
[2023-10-01] MEDS: METOPROLOL TARTRATE 25 MG TAB PO SCH ×2 (09:00→20:51)
[2023-10-01] MEDS: FAMOTIDINE 20MG TAB PO SCH (09:36)
[2023-10-01] MEDS: HYDROCHLOROTHIAZIDE 25 MG TABLET PO SCH (09:36)
[2023-10-01] MEDS: ASPIRIN 81MG CHEW TAB PO SCH (09:36)
[2023-10-01] MEDS: HYDRALAZINE 25MG TABLET PO SCH ×2 (09:41→20:51)
[2023-10-01] MEDS: LOSARTAN 50 MG TABLET PO SCH ×2 (09:41→20:49)
[2023-10-01] MEDS: FUROSEMIDE 20 MG TABLET PO SCH (09:42)
[2023-10-01] MEDS: WARFARIN SODIUM 5 MG TAB PO SCH (16:38)
[2023-10-02] VITALS (12 sets, daily range): BP systolic 131–163; BP diastolic 77–92; PULSE 50–128; RESP 18–22; O2SAT 92–98
[2023-10-02] MEDS: INSULIN HUMULIN R 100 UNIT/ML 3ML SQ SCH ×4 (06:05→21:25)
[2023-10-02] MEDS: LEVOTHYROXINE 50 MCG TABLET PO SCH (06:09)
[2023-10-02] MEDS: IPRATROPIUM 0.5 MG/2.5 ML INH IH SCH ×4 (06:59→23:07)
[2023-10-02] MEDS: METOPROLOL TARTRATE 25 MG TAB PO SCH ×2 (08:21→21:36)
[2023-10-02] MEDS: FUROSEMIDE 20 MG TABLET PO SCH (08:38)
[2023-10-02] MEDS: HYDROCHLOROTHIAZIDE 25 MG TABLET PO SCH (08:38)
[2023-10-02] MEDS: FAMOTIDINE 20MG TAB PO SCH (08:38)
[2023-10-02] MEDS: LOSARTAN 50 MG TABLET PO SCH ×2 (08:38→21:36)
[2023-10-02] MEDS: HYDRALAZINE 25MG TABLET PO SCH ×2 (08:39→21:37)
[2023-10-02] MEDS: ASPIRIN 81MG CHEW TAB PO SCH (08:39)
[2023-10-02 10:03] LABS: INR 1.6 (0.85-1.15)
[2023-10-02] MEDS: WARFARIN SODIUM 5 MG TAB PO SCH (17:14)
[2023-10-02] MEDS: HEPARIN 25,000 UNITS/250ML D5W 250 ML IV SCH (21:40)
[2023-10-03] VITALS (9 sets, daily range): BP systolic 122–145; BP diastolic 76–83; PULSE 57–87; RESP 16–22; O2SAT 92–94
[2023-10-03] MEDS: INSULIN HUMULIN R 100 UNIT/ML 3ML SQ SCH ×2 (05:42→12:07)
[2023-10-03] MEDS: LEVOTHYROXINE 50 MCG TABLET PO SCH (06:03)
[2023-10-03] MEDS: IPRATROPIUM 0.5 MG/2.5 ML INH IH SCH ×2 (06:26→11:10)
[2023-10-03] MEDS: HYDRALAZINE 25MG TABLET PO SCH (09:12)
[2023-10-03] MEDS: HYDROCHLOROTHIAZIDE 25 MG TABLET PO SCH (09:13)
[2023-10-03] MEDS: FUROSEMIDE 20 MG TABLET PO SCH (09:13)
[2023-10-03] MEDS: LOSARTAN 50 MG TABLET PO SCH (09:13)
[2023-10-03] MEDS: FAMOTIDINE 20MG TAB PO SCH (09:13)
[2023-10-03] MEDS: ASPIRIN 81MG CHEW TAB PO SCH (09:13)
[2023-10-03 10:33] LABS: PARTIAL THROMBOPLASTIN TIME 66.6 SEC (26.3-35.5)
[2023-10-03 12:23] LABS: INR 3.38 (0.85-1.15)
[2023-10-03 12:25] LABS: PROTHROMBIN TIME 36.2 SEC (9.6-11.6)
[2023-10-03] MEDS ORDERED: WARF7.5T49 PO (15:20)
[2023-10-03] MEDS ORDERED: ASPI-1005 PO (15:20)
[2023-10-03] MEDS ORDERED: FURO20TA6 PO (15:20)
[2023-10-03] MEDS ORDERED: METO25 PO (15:20)
[2023-10-03] MEDS ORDERED: METOPROLOL TARTRATE 25 MG TAB PO SCH (21:00)
== END 2023-10-03 17:20 | disposition home or self-care (01) | DRG 291 ==
LOC: EDH 17:30 → EDHIP 17:31 → 2DH 09-23 00:01
PROVIDERS: ADMIT Internal Medicine; ATTEND Internal Medicine
PROC: 5A09357 Assistance with Respiratory Ventilation, Less than 24 Consecutive Hours, Continuous Positive Airway Pressure (ICD-10-PCS; principal; 2023-09-25)
PROC: B24BZZ4 Ultrasonography of Heart with Aorta, Transesophageal (ICD-10-PCS; 2023-09-25)
PROC: 5A09357 Assistance with Respiratory Ventilation, Less than 24 Consecutive Hours, Continuous Positive Airway Pressure (ICD-10-PCS; 2023-09-27)
PROC: 5A09357 Assistance with Respiratory Ventilation, Less than 24 Consecutive Hours, Continuous Positive Airway Pressure (ICD-10-PCS; 2023-09-29)
PROC: 5A09357 Assistance with Respiratory Ventilation, Less than 24 Consecutive Hours, Continuous Positive Airway Pressure (ICD-10-PCS; 2023-10-02)
DX: I11.0 Hypertensive heart disease with heart failure (principal); I50.43 Acute on chronic combined systolic (congestive) and diastolic (congestive) heart failure; J96.01 Acute respiratory failure with hypoxia; Z68.41 Body mass index [BMI] 40.0-44.9, adult; E11.9 Type 2 diabetes mellitus without complications; I48.91 Unspecified atrial fibrillation; I34.0 Nonrheumatic mitral (valve) insufficiency; E03.9 Hypothyroidism, unspecified; E66.01 Morbid (severe) obesity due to excess calories; E83.42 Hypomagnesemia; E78.5 Hyperlipidemia, unspecified; E87.6 Hypokalemia; F32.A Depression, unspecified; G47.33 Obstructive sleep apnea (adult) (pediatric); Z53.9 Procedure and treatment not carried out, unspecified reason; Z79.01 Long term (current) use of anticoagulants; Z79.82 Long term (current) use of aspirin; Z79.899 Other long term (current) drug therapy; Z82.0 Family history of epilepsy and other diseases of the nervous system; Z82.3 Family history of stroke; Z82.49 Family history of ischemic heart disease and other diseases of the circulatory system; Z82.5 Family history of asthma and other chronic lower respiratory diseases; Z83.3 Family history of diabetes mellitus
CPT/HCPCS: 36415; 36600; 71045; 76700; 78452; 80048; 80053; 80305; 81001; 82150; 82803; 82948; 83036; 83690; 83735; 83880; 84100; 84132; 84443; 84484; 85025; 85027; 85610; 85730; 86850; 86900; 86901; 87040; 87635; 87804; 87880; 93005; 93017; 93306; 93312; 94640; 94660; 94664; 96374; A9500; C1894; G0378; J0282; J0360; J0456; J0696; J1644; J1650; J1815; J1940; J2001; J2270; J2704; J2765; J2785; J3475; J3480; J3490; J7060; C1750

== ENCOUNTER → 2023-10-10 | Outpatient (CLI) | payer SELFPAY ==
[~2023-10-10] MED LIST changes: +ASPI-1005 PO; +BENZ-226 PO; -BUPR-49 PO; +CARV25TA PO; -DAPA5TAB PO; +FURO20TA6 PO; +GABA-534 PO; -GLIP10TA9 PO; +HYDR100T27 PO; +HYDR25TA PO; +LEVO50TA4 PO; +LOSA50TA64 PO; +METO25 PO; -OMEP20CA12 PO; +PIOG30TA70 PO; -SITA100T12 PO; +WARF7.5T49 PO
[2023-10-10 12:51] LABS: ALBUMIN 3.4 g/dL (3.5-5.0); BILIRUBIN,TOTAL 0.6 mg/dL (0.2-1.0); CREATININE 0.9 mg/dL (0.5-1.5); POTASSIUM 4.2 mmol/L (3.5-5.1); TOTAL PROTEIN, SERUM 7.5 g/dL (6.0-8.3)
== END | disposition home or self-care (01) ==
LOC: LAB 09:48
PROVIDERS: ATTEND Student in an Organized Health Care Education/Training Program
DX: R07.9 Chest pain, unspecified (principal)
CPT/HCPCS: 36415; 80053

== ENCOUNTER 2024-08-17 06:53 | Observation (INO) | payer BC, SELFPAY ==
[~2024-08-17] VITALS: Ht 172.7 cm; Wt 138.7 kg
[~2024-08-17 06:53] MED LIST changes: +HYDR100T15 PO; -HYDR100T27 PO
[2024-08-17] MEDS: LACTATED RINGERS 1000ML 1,000 ML IV ONE (07:42)
[2024-08-17 08:01] LABS: BASOPHILS # (AUTO) 0.01 K/uL (0.00-0.20); BASOPHILS % (AUTO) 0.2 % (0.0-5.0); EOSINOPHILS # (AUTO) 0.08 K/uL (0.00-0.70); EOSINOPHILS % (AUTO) 1.8 % (0.0-8.0); HEMATOCRIT 38.2 % (36-48); IMMATURE GRANULOCYTE ABSOLUTE 0.01 K/uL (0-1); LYMPHOCYTES # (AUTO) 1.6 K/uL (1.0-4.8); LYMPHOCYTES % (AUTO) 34.1 % (21.0-51.0); MEAN CORPUSCULAR HEMOGLOBIN 27.7 pg (27.0-33.0); MEAN CORPUSCULAR HGB CONC 31.7 g/dL (32.0-36.0); MEAN CORPUSCULAR VOLUME 87.4 fL (79-99); MONOCYTES # (AUTO) 0.3 K/uL (0.1-1.0); MONOCYTES % (AUTO) 5.9 % (3.0-13.0); NEUTROPHILS # (AUTO) 2.6 K/uL (1.8-7.7); NEUTROPHILS % (AUTO) 57.8 % (40.0-77.0); PLATELET COUNT (AUTO) 202 K/uL (130-400); RED BLOOD CELL COUNT(AUTO) 4.37 MIL/uL (4.00-5.50); RED CELL DISTRIBUTION WIDTH 15.2 % (11.0-15.5); WHITE BLOOD COUNT (AUTO) 4.6 K/uL (4.8-10.8)
[2024-08-17 08:16] LABS: INR 2.49 (0.85-1.15); PROTHROMBIN TIME 25.1 SEC (9.6-11.6)
[2024-08-17 08:23] LABS: CREATININE 0.8 mg/dL (0.5-1.0); MAGNESIUM 1.4 mg/dL (1.80-2.40); POTASSIUM 3.7 mmol/L (3.5-5.1)
[2024-08-17 08:37] LABS: B-TYPE NATRIURETIC PEPTIDE 167 pg/mL (0-100)
[2024-08-17] MEDS ORDERED: OMEP20CA12 PO (09:00)
[2024-08-17] MEDS ORDERED: WARF7.5T6 PO (09:00)
[2024-08-17] MEDS: MAGNESIUM 2GM PREMIX 50ML 50 ML IV ONE (09:39)
[2024-08-17 11:09] LABS: APPEARANCE,URINE CLEAR (CLEAR); BILIRUBIN,URINE NEGATIVE (NEGATIVE); COLOR,URINE LIGHT-YELLOW (YELLOW); GLUCOSE, URINE (UA) NEGATIVE (NEGATIVE); KETONES,URINE NEGATIVE (NEGATIVE); LEUKOCYTE ESTERASE ,URINE NEGATIVE Leu/uL (NEGATIVE); NITRATE,URINE NEGATIVE (NEGATIVE); OCCULT BLOOD,URINE NEGATIVE (NEGATIVE); PH,URINE 6.5 (5.0-8.0); PROTEIN,URINE NEGATIVE (NEGATIVE); UROBILINOGEN,URINE 0.2 mg/dL (0.2-1.0)
[2024-08-17 11:14] LABS: ADD UA MICROSCOPIC NO
[2024-08-17] MEDS ORDERED: PoTASSium chl 10% ELIXIR 20MEQ 20 MEQ/15 ML UDCUP PO PRN (12:00)
[2024-08-17] MEDS ORDERED: PoTASSium chloRIDE 20MEQ/100ML 100 ML IV PRN (12:00)
[2024-08-17] MEDS ORDERED: PoTASSium chloRIDE 20MEQ ER 20 MEQ ERTAB PO PRN (12:00)
[2024-08-17] MEDS ORDERED: DEXTROSE 50%-WATER 50 ML DISP.SYRIN IV PRN (12:00)
[2024-08-17] MEDS ORDERED: GLUCAGON 1MG KIT 1 MG ML IM PRN (12:00)
[2024-08-17 12:42] LABS: HEMOGLOBIN A1C 8.7 % (4.0-6.0)
[2024-08-17] MEDS: ENOXAPARIN SODIUM 120 MG/0.8ML SQ SCH (15:22)
[2024-08-17] MEDS: GABAPENTIN 300 MG CAPSULE PO SCH (15:22)
[2024-08-17] MEDS: furoSEMIDE 20MG VIAL IV SCH (15:23)
[2024-08-17] MEDS: nifeDIPine ER 30 MG TAB PO SCH (18:21)
[2024-08-17] MEDS: carVEDIlol 25 MG TABLET PO SCH (18:21)
[2024-08-17] MEDS: INSULIN humuLIN R 100 UNIT/ML 3ML SQ SCH (18:23)
[2024-08-17] MEDS: LoSARTan 50 MG TABLET PO SCH (22:18)
[2024-08-17] MEDS: atorVAStatin 40 MG TABLET PO SCH (22:18)
[2024-08-17 22:31] VITALS: O2SAT 95
[2024-08-17 23:45] VITALS: BP 146/65; PULSE 55; RESP 17; TEMP 97.8
[2024-08-18 04:00] VITALS: BP 148/86; PULSE 60; RESP 17; TEMP 98.2
[2024-08-18] MEDS: levoTHYROxine 50 MCG TABLET PO SCH (05:55)
[2024-08-18] MEDS: MAGNESIUM 2GM PREMIX 50ML 50 ML IV PRN (06:53)
[2024-08-18 08:00] VITALS: BP 148/85; PULSE 60; RESP 19; TEMP 98.2
[2024-08-18] MEDS: PANTOPrazole 40 MG TAB DR PO SCH (08:28)
[2024-08-18] MEDS: nifeDIPine ER 30 MG TAB PO SCH (08:29)
[2024-08-18] MEDS: ASPIRIN 81 MG EC TAB PO SCH (08:29)
[2024-08-18] MEDS ORDERED: NIFE-40 PO (11:30)
[2024-08-18 12:00] VITALS: BP 137/60; PULSE 50; RESP 18; TEMP 98.1
[2024-08-18] MEDS: furoSEMIDE 20 MG TABLET PO SCH (12:00)
== END 2024-08-18 12:45 | disposition home or self-care (01) ==
LOC: EDH 06:53 → EDHIP 09:54 → 3AH 23:54
PROVIDERS: ADMIT Internal Medicine; ATTEND Internal Medicine
DX: I16.0 Hypertensive urgency (principal); I21.A1 Myocardial infarction type 2; I48.0 Paroxysmal atrial fibrillation; E83.42 Hypomagnesemia; E78.5 Hyperlipidemia, unspecified; E11.65 Type 2 diabetes mellitus with hyperglycemia; E03.9 Hypothyroidism, unspecified; I11.0 Hypertensive heart disease with heart failure; I50.23 Acute on chronic systolic (congestive) heart failure; I34.81 Nonrheumatic mitral (valve) annulus calcification; J45.909 Unspecified asthma, uncomplicated; E66.01 Morbid (severe) obesity due to excess calories; F17.210 Nicotine dependence, cigarettes, uncomplicated; Z79.01 Long term (current) use of anticoagulants; Z79.899 Other long term (current) drug therapy; Z98.890 Other specified postprocedural states
CPT/HCPCS: 96372 ×2; 96365; 96375; 99285; 83036; 82550; 83735 ×2; 84484 ×4; 80048; 83880 ×2; 85025; 85610; 82948 ×3; 81003; 36415 ×2; 71045; 93306; 93005; 96376; 96366; G0378 ×26; J3475 ×2; J1940 ×2; J1650; J1815 ×3

== ENCOUNTER 2024-12-27 08:26 | Emergency (ER) | payer BC ==
[~2024-12-27] VITALS: Ht 170.2 cm; Wt 127.0 kg
[~2024-12-27 08:26] MED LIST changes: -BENZ-226 PO; -HYDR100T15 PO; -HYDR25TA PO; -METO25 PO; +NIFE-40 PO; +OMEP20CA12 PO; -PIOG30TA70 PO; -WARF7.5T49 PO; +WARF7.5T6 PO
[2024-12-27] MEDS ORDERED: metoPROLOL tartRATE 1 MG/ML 5ML VIAL IV ONE (09:00)
[2024-12-27 09:20] LABS: HEMATOCRIT 41.5 % (36-48); MEAN CORPUSCULAR HEMOGLOBIN 28.8 pg (27.0-33.0); MEAN CORPUSCULAR HGB CONC 32.5 g/dL (32.0-36.0); MEAN CORPUSCULAR VOLUME 88.7 fL (79-99); RED BLOOD CELL COUNT(AUTO) 4.68 MIL/uL (4.00-5.50); RED CELL DISTRIBUTION WIDTH 14.1 % (11.0-15.5); WHITE BLOOD COUNT (AUTO) 5.3 K/uL (4.8-10.8)
[2024-12-27 09:42] LABS: INR 2.02 (0.85-1.15); PROTHROMBIN TIME 21.1 SEC (9.6-11.6)
[2024-12-27 09:43] LABS: PARTIAL THROMBOPLASTIN TIME 39.5 SEC (26.3-35.5)
--- NOTE | 2024-12-27 09:48 | HMCIMG ---
PORTABLE CHEST RADIOGRAPH INDICATION: Palpitations COMPARISON: 08/17/2024 FINDINGS: Image is somewhat underexposed, but the radiologic examination is still believed to be of reasonable diagnostic quality. Heart size is normal. The pulmonary vascularity and evelyn appear normal. No abnormal pulmonary parenchymal opacity or consolidation identified. No significant pleural effusion noted. No pneumothorax detected. IMPRESSION: No radiographic evidence for any acute cardiopulmonary process.
[2024-12-27 09:50] LABS: CREATININE 0.7 mg/dL (0.5-1.0); POTASSIUM 3.4 mmol/L (3.5-5.1)
[2024-12-27 09:55] LABS: ALBUMIN 3.3 g/dL (3.5-5.0); BILIRUBIN,TOTAL 0.7 mg/dL (0.2-1.0); TOTAL PROTEIN, SERUM 7.5 g/dL (6.0-8.3)
--- NOTE | 2024-12-27 10:06 | NUR ---
HOLD MEDICATION AT THIS TIME; Pt CONVERTED BACK TO SINUS RHYTHM SEE 2ND EKG
--- NOTE | 2024-12-27 10:30 | ERN ---
ED Note History of Present Illness Stated Complaint: PALPITATIONS Chief Complaint: Palpitations Time Seen by MD: 08:33 Dictation: 64-year-old female with a history of HTN and DM presents to the ED for evaluation of palpitations onset 6:00 a.m.. Patient denies any chest pain, shortness of breath or any other associated symptoms at this time. Medications: Losartan, labetalol, gabapentin. Allergies: Coded Allergies: No Known Drug Allergies (Unverified Allergy, Unknown, 12/14/16) Home Meds Active Scripts Nifedipine (Nifedipine ER) 30 Mg Tab.er.24, 30 MG PO DAILY for 30 Days, #30 TAB Prov:YARELIS GONGORA NP 08/18/24 Furosemide (Lasix 20Mg Tab) 20 Mg Tablet, 20 MG PO DAILY, #30 TAB 0 Refills Prov:DEMETRICE MORRIS MD 10/03/23 Aspirin (ASPIRIN 81MG CHEW TAB) 81 Mg Tab.chew, 81 MG PO DAILY, #30 TAB.CHEW 0 Refills Prov:DEMETRICE MORRIS MD 10/03/23 Reported Medications Omeprazole (Omeprazole) 20 Mg Capsule.dr, 20 MG PO DAILY, CAP 08/17/24 Warfarin Sodium (Jantoven) 7.5 Mg Tablet, 7.5 MG PO DAILY, TAB 08/17/24 Carvedilol (Carvedilol) 25 Mg Tablet, 25 MG PO BIDMEALS, TAB 09/23/23 Levothyroxine Sodium (Synthroid 50 Mcg Tab) 50 Mcg Tablet, 50 MCG PO DAILY, TAB 09/23/23 Losartan Potassium (Losartan Potassium) 50 Mg Tablet, 50 MG PO BID, TAB 09/23/23 Gabapentin (Gabapentin) 400 Mg Capsule, 300 MG PO TID, CAP 09/23/23 Metformin HCl (Metformin HCl) 1,000 Mg Tablet, 1000 MG PO BIDMEALS, TAB 11/02/22 Past Medical History Past Medical History: A-Fib, Asthma, Bronchitis, Depression, Diabetes-Type II, Hypertension, Hypothyroid, Liver Disease, Other Additional Past Medical Hx: UNKNOWN CARDIAC Surgical History: Family History: CAD, DM, HTN Social History: Negative, Lives with family History: Not Applicable Review of System Dictation Constitutional: Negative for fever,chills, and weight loss Eyes: Negative for injury, pain,redness, and discharge ENT: Negative for injury,pain or swelling Cardiovascular: Positive for palpitations Negative for chest pain and edema Respiratory: Negative for shortness of breath, cough, and wheezing, Abdomen/GI: Negative for abdominal pain, nausea, vomiting, diarrhea, and constipation Back: Negative for injury and pain : Negative for injury, bleeding and discharge MS/Extremity: Negative for injury and deformity Skin: Negative for rash, and discoloration Neuro: Negative for headache, weakness, numbness, tingling, and seizure Psych: Negative for suicide ideation, homicidal ideation, and hallucinations Initial Vital Sign VS Vital Signs Date Time Temp Pulse Resp B/P (MAP) Pulse Ox O2 Delivery O2 Flow Rate FiO2 12/27/24 08:28 97.9 66 16 133/98 96 Room Air* 0 21 Physical Exam Dictation General: awake, alert, NAD Head/Face: Normocephalic, atraumatic Eyes: PERRL, EOMI, vision at baseline ENT: oral cavity clear, TMs clear, no signs of infection Neck: Trachea midline, supple, no nuchal rigidity Cardiovascular: Tachycardic No MRGs, no JVD Respiratory: CTAB, no respiratory distress, No rales or wheezes Abdomen: Soft, non-tender, non-distended, normal bowel sounds, no guarding or rebound. Skin: Warm, dry, normal turgor, no rash MS/Extremity: Pulses equal, no cyanosis, neurovascular intact, FROM Neuro: COAx4, GCS 15, strength 5/5, CN 2-12 intact, normal cerebellar exam, normal gait, Psych: Normal behavior, mood, and affect normal Results (Laboratory/Radiology) Laboratory/Radiology Laboratory Tests Test 12/27/24 09:02 12/27/24 11:24 White Blood Count 5.3 K/uL (4.8-10.8) Red Blood Count 4.68 MIL/uL (4.00-5.50) Hemoglobin 13.5 g/dL (12.0-16.0) Hematocrit 41.5 % (36-48) Mean Corpuscular Volume 88.7 fL (79-99) Mean Corpuscular Hemoglobin 28.8 pg (27.0-33.0) Mean Corpuscular Hemoglobin Concent 32.5 g/dL (32.0-36.0) Red Cell Distribution Width 14.1 % (11.0-15.5) Platelet Count 209 K/uL (130-400) Mean Platelet Volume 10.0 fL (7.5-10.5) Nucleated Red Blood Cells 0.0 % (0.0-0.19) Prothrombin Time 21.1 SEC (9.6-11.6) H Prothromb Time International Ratio 2.02 (0.85-1.15) H Activated Partial Thromboplast Time 39.5 SEC (26.3-35.5) H Sodium Level 140 mmol/L (136-145) Potassium Level 3.4 mmol/L (3.5-5.1) L Chloride Level 100 mmol/L (101-111) L Carbon Dioxide Level 31 mmol/L (21-32) Blood Urea Nitrogen 13 mg/dL (7-18) Creatinine 0.7 mg/dL (0.5-1.0) Glomerular Filtration Rate Calc 96 mL/min (>90) Random Glucose 199 mg/dL (70-105) H Total Calcium 9.2 mg/dL (8.5-10.1) Total Bilirubin 0.7 mg/dL (0.2-1.0) Aspartate Amino Transf (AST/SGOT) 15 U/L (10-37) Alanine Aminotransferase (ALT/SGPT) 22 U/L (12-78) Alkaline Phosphatase 109 U/L (50-136) Troponin I High Sensitivity 87 ng/L (4-50) *H 102 ng/L (4-50) *H B-Type Natriuretic Peptide 92 pg/mL (0-100) Total Protein 7.5 g/dL (6.0-8.3) Albumin 3.3 g/dL (3.5-5.0) L Labs Reviewed?: Yes EKG Comment: EKG 12/27/2024 time 8:34 a.m. ventricular rate 134, atrial fibrillation with RVR. QRS D 96, QT 319. No STEMI EKG 12/27/2024 time 9:57 a.m. ventricular rate 56, DE 186, QRS D 100, QT 426. Sinus rhythm. No STEMI ED Course ED Course Orders Procedure Category Date Status Time Cbc Without LAB 12/27/24 Complete Differential 08:31 Comprehensive LAB 12/27/24 Complete Metabolic Panel 08:31 12 Lead Ekg Tracing- EKG 12/27/24 Complete Technical 08:31 Troponin I High LAB 12/27/24 Complete Sensitivity 08:31 Chest 1vw RAD 12/27/24 Resulted 08:31 B-Type Natriuretic LAB 12/27/24 Complete Peptide 08:42 Pt And Ptt LAB 12/27/24 Complete 08:45 Metoprolol Tartrate PHA 12/27/24 Complete (Lopressor) 09:00 12 Lead Ekg Tracing- EKG 12/27/24 Complete Technical 09:51 Troponin I High LAB 12/27/24 Complete Sensitivity 11:16 Current Medications Medications (Trade) Dose Ordered Sig/Cortes Route PRN Reason Start Time Stop Time Status Last Admin Dose Admin Metoprolol Tartrate (loprESSOR) 5 mg ONCE ONCE IV 12/27/24 09:00 12/27/24 09:01 DC Vital Signs Date Time Temp Pulse Resp B/P (MAP) Pulse Ox O2 Delivery O2 Flow Rate FiO2 12/27/24 12:05 98.8 59 18 146/78 Room Air* 0 21 12/27/24 11:10 98.6 59 18 150/84 100 Room Air* 0 21 12/27/24 10:10 98.6 58 18 121/79 100 Room Air* 0 21 12/27/24 08:28 97.9 66 16 133/98 Room Air 12/27/24 08:28 97.9 66 16 133/98 96 Room Air* 0 21 HEART Score Response (Comments) Value History: Low suspicion (0) 0 EKG: Normal 0 Age: 45-65yrs (+1) 1 Risk Factors: 1-2 risk factors (+1) 1 Initial Troponin: 1-3x Normal Limit (+1) 1 HEART Score Risk: Low Risk for MACE (1-3) Total 3 Medical Decision Making MDM MDM: Differential diagnosis: Chronic AFib RVR, palpitations Rationale: Tests considered and ordered secondary to shared decision making include: labs, ECG and radiology Risk of complication and/or morbidity or mortality of patient management: None Medications-Per medication reconciliation Need for hospitalization: Patient does meet criteria for hospitalization. Need for emergency major/minor surgery: No There are no social concerns with this patient. Prescription drug management Prescriptions will include symptomatic care I independently interpreted the test that were performed, results were reviewed by me and considered findings on radiology if ordered. Medical management and examination interpretation discussions were had by me with other qualified healthcare professionals as indicated for the patient's care. 64-year-old female with paroxysmal AFib RVR, resolved on its own without any medication was observed in the emergency department for 3 hours no chest pain or symptoms now, patient is therapeutic on warfarin with INR of two, and repeat troponins show no significant elevation. Patient is stable for discharge. HEART score 3 DX & DISP Disposition: Discharge Departure Impression: Primary Impression: Atrial fibrillation, chronic Additional Impression: Palpitations Condition: Stable Referrals: NANY MCGHEE (PCP) FENG HORNER MD Dec 27, 2024 10:30
[2024-12-27 11:10] VITALS: O2SAT 100
[2024-12-27 12:05] VITALS: BP 146/78; PULSE 59; RESP 18; TEMP 98.7
--- NOTE | 2024-12-27 16:59 | EKG ---
[facility] Test Date: 2024-12-27 Test Time: 09:57:49 Pat Name: MATTEO BRADFORD Department: ED Room: Gender: F Forging Die Sinker: 0723 : 1960 Requested By: FENG HORNER Order Number: [id number] Reading MD: Joana Mckeon Measurements Intervals [place] Rate: 56 P: 25 NV: 186 QRS: 37 QRSD: 100 T: 32 QT: 426 QTc: 412 Interpretive Statements Sinus rhythm Compared to ECG 12/27/2024 08:34:15 Atrial fibrillation no longer present Electronically Signed On 12-28-2024 16:06:56 INSURANCE ADVISER by Joana Mckeon Please click the below link to view image of tracing.
--- NOTE | 2024-12-27 16:59 | EKG ---
[facility] Test Date: 2024-12-27 Test Time: 08:34:15 Pat Name: MATTEO BRADFORD Department: ED Room: Gender: F Wet Press Tender: 0723 : 1960 Requested By: FENG HORNER Order Number: [id number] Reading MD: Joana Mckeon Measurements Intervals [place] Rate: 134 P: 0 ND: 0 QRS: 61 QRSD: 96 T: 19 QT: 319 QTc: 478 Interpretive Statements Atrial fibrillation with rapid ventricular response Compared to ECG 08/17/2024 07:16:38 Sinus rhythm no longer present Electronically Signed On 12-28-2024 16:06:42 SUPERVISOR BLASTING by Joana Mckeon Please click the below link to view image of tracing.
== END 2024-12-27 12:15 | disposition home or self-care (01) ==
LOC: EDH 08:26
DX: I48.20 Chronic atrial fibrillation, unspecified (principal); R00.2 Palpitations; J45.909 Unspecified asthma, uncomplicated; E03.9 Hypothyroidism, unspecified; E11.9 Type 2 diabetes mellitus without complications; I10 Essential (primary) hypertension; Z79.01 Long term (current) use of anticoagulants; Z79.82 Long term (current) use of aspirin; Z79.890 Hormone replacement therapy; Z79.899 Other long term (current) drug therapy
CPT/HCPCS: 36415; 71045; 80053; 83880; 84484; 85027; 85610; 85730; 93005; 99284; J3490

== ENCOUNTER 2025-08-31 11:53 | Emergency (ER) | payer SELFPAY ==
[~2025-08-31] VITALS: Ht 170.2 cm; Wt 121.1 kg
--- NOTE | 2025-08-31 11:59 | ERN ---
ED Note History of Present Illness Stated Complaint: FATIGUE Chief Complaint: Fatigue Time Seen by MD: 11:55 Dictation: A 65-year-old female coming in today with complaints of generalized body weakness and f fatigue over the last four days. She denies fever chills nausea vomiting. No chest pain no back pain no SOB. NIH is 0. She states she has a history of diabetes and hypertension, has not been checking her glucose last several days. She states she only felt like taken her high blood pressure medications this morning and went to her primary care doctor. The primary care doctor sent her to the emergency room for further evaluation and treatment did not perform any labs EKGs or x-rays Allergies: Coded Allergies: No Known Drug Allergies (Unverified Allergy, Unknown, 12/14/16) Home Meds Active Scripts Nifedipine (Nifedipine ER) 30 Mg Tab.er.24, 30 MG PO DAILY for 30 Days, #30 TAB Prov:YARELIS GONGORA NP 08/18/24 Furosemide (Lasix 20Mg Tab) 20 Mg Tablet, 20 MG PO DAILY, #30 TAB 0 Refills Prov:DEMETRICE MORRIS MD 10/03/23 Aspirin (ASPIRIN 81MG CHEW TAB) 81 Mg Tab.chew, 81 MG PO DAILY, #30 TAB.CHEW 0 Refills Prov:DEMETRICE MORRIS MD 10/03/23 Reported Medications Omeprazole (Omeprazole) 20 Mg Capsule.dr, 20 MG PO DAILY, CAP 08/17/24 Warfarin Sodium (Jantoven) 7.5 Mg Tablet, 7.5 MG PO DAILY, TAB 08/17/24 Carvedilol (Carvedilol) 25 Mg Tablet, 25 MG PO BIDMEALS, TAB 09/23/23 Levothyroxine Sodium (Synthroid 50 Mcg Tab) 50 Mcg Tablet, 50 MCG PO DAILY, TAB 09/23/23 Losartan Potassium (Losartan Potassium) 50 Mg Tablet, 50 MG PO BID, TAB 09/23/23 Gabapentin (Gabapentin) 400 Mg Capsule, 300 MG PO TID, CAP 09/23/23 Metformin HCl (Metformin HCl) 1,000 Mg Tablet, 1000 MG PO BIDMEALS, TAB 11/02/22 Past Medical History Past Medical History: A-Fib, Asthma, Bronchitis, Depression, Diabetes-Type II, Hypertension, Hypothyroid, Liver Disease, Other Additional Past Medical Hx: UNKNOWN CARDIAC Surgical History: Family History: CAD, DM, HTN Social History: Negative, Lives with family History: Not Applicable RN Note Reviewed/Agreed w/PFSH: Yes Review of System Dictation CONSTITUTIONAL: NEGATIVE EXCEPT FOR HPI GB W HEAD/FACE: NEGATIVE EXCEPT FOR HPI EENT: NEGATIVE EXCEPT FOR HPI RESPIRATORY: NEGATIVE EXCEPT FOR HPI TACHYCARDIA GASTROINTESTINAL/ABDOMINAL: NEGATIVE EXCEPT FOR HPI GENITOURINARY: NEGATIVE EXCEPT FOR HPI MUSCULOSKELETAL: NEGATIVE EXCEPT FOR HPI INTEGUMENTARY: NEGATIVE EXCEPT FOR HPI NEUROLOGICAL/PSYCH: NEGATIVE EXCEPT FOR HPI HEMATOLOGIC/LYMPHATIC: NEGATIVE EXCEPT FOR HPI ALL SYSTEMS NEGATIVE, EXCEPT NOTED ABOVE. 13 POINT REVIEW OF SYSTEMS ASSESSED AND ALL NEGATIVE EXCEPT FOR ABOVE. Initial Vital Sign VS Vital Signs Date Time Temp Pulse Resp B/P (MAP) Pulse Ox O2 Delivery O2 Flow Rate FiO2 08/31/25 11:54 97.5 83 18 118/77 97 Room Air 08/31/25 14:07 0 21 Physical Exam Dictation VITAL SIGNS REVIEWED GENERAL APPEARANCE: ALERT, ORIENTED X 3, MILD ACUTE DISTRESS, WELL DEVELOPED, NOURISHED. OBESE HEAD AND FACE: NON-TRAUMATIC. EYES: PERRL, PINK CONJUNCTIVAS, EYELID NO TRAUMA, ANTERIOR CHAMBER WITH ARCUS SENILIS. EARS: PINNAS INTACT AND NO SIGNS OF TRAUMA OR ERYTHEMA EAR CANALS CLEAR AND NO DISCHARGE TM NO ERYTHEMA NOSE: NO DISCHARGE, NO BLEEDING. OROPHARYNX: MOUTH NORMAL, TONGUE PINK, PHARYNX CLEAR,NO ERYTHEMA, TONSILS NO EXUDATES, NO ABSCESSES NOTED, MUCOUS MEMBRANE MOIST NECK: SUPPLE, NON-TENDER, NO THYROMEGALY, NO MASSES, NO JVD, NO BRUITS BREAST:DEFERRED CHEST:NO TENDERNESS, NO CREPITUS, NO PARADOXICAL MOVEMENT, NO RETRACTIONS LUNGS:CLEAR, WELL-VENTILATED, SYMMETRIC, NO RALES, NO WHEEZING, NO RHONCHI, NO STRIDOR, GOOD BREATH SOUNDS BILATERALLY HEART: TACHYCARDIC AND IRREGULAR, NO MURMUR, NO GALLOPS VASCULAR: NO PERIPHERAL EDEMA, ABDOMEN: SOFT, POSITIVE BOWEL SOUNDS, NONDISTENDED, NO GUARDING, NONTENDER, NO REBOUND, NO MASSES NO HEPATOMEGALY, NO SPLENOMEGALY, NO GOMEZ'S SIGN, NO HERNIAS. RECTAL: DEFERRED GENITAL: DEFERRED NEUROLOGICAL: NORMAL SPEECH, MOTOR FUNCTION INTACT, SENSORY FUNCTION INTACT MUSCULOSKELETAL: NECK NONTENDER, FULL RANGE OF MOTION, BACK NONTENDER, FULL RANGE OF MOTION, EXTREMITIES: NONTENDER, FULL RANGE OF MOTION SKIN: COLOR PINK, DRY, NO TURGOR, NO RASH, NO LACERATIONS, NO ABRASIONS, NO CONTUSIONS. LYMPHATIC: DEFERRED Results (Laboratory/Radiology) Laboratory/Radiology Laboratory Tests Test 08/31/25 12:16 08/31/25 14:09 White Blood Count 4.5 K/uL (4.8-10.8) L Red Blood Count 3.88 MIL/uL (4.00-5.50) L Hemoglobin 11.6 g/dL (12.0-16.0) L Hematocrit 36.3 % (36-48) Mean Corpuscular Volume 93.6 fL (79-99) Mean Corpuscular Hemoglobin 29.9 pg (27.0-33.0) Mean Corpuscular Hemoglobin Concent 32.0 g/dL (32.0-36.0) Red Cell Distribution Width 14.6 % (11.0-15.5) Platelet Count 207 K/uL (130-400) Mean Platelet Volume 10.0 fL (7.5-10.5) Immature Granulocyte % (Auto) 0.2 % (0-1) Neutrophils (%) (Auto) 55.8 % (40.0-77.0) Lymphocytes (%) (Auto) 35.7 % (21.0-51.0) Monocytes (%) (Auto) 6.1 % (3.0-13.0) Eosinophils (%) (Auto) 1.8 % (0.0-8.0) Basophils (%) (Auto) 0.4 % (0.0-5.0) Neutrophils # (Auto) 2.5 K/uL (1.8-7.7) Lymphocytes # (Auto) 1.6 K/uL (1.0-4.8) Monocytes # (Auto) 0.3 K/uL (0.1-1.0) Eosinophils # (Auto) 0.08 K/uL (0.00-0.70) Basophils # (Auto) 0.02 K/uL (0.00-0.20) Absolute Immature Granulocyte (auto 0.01 K/uL (0-1) Nucleated Red Blood Cells 0.0 % (0.0-0.19) Sodium Level 140 mmol/L (136-145) Potassium Level 4.3 mmol/L (3.5-5.1) Chloride Level 106 mmol/L (101-111) Carbon Dioxide Level 27 mmol/L (21-32) Blood Urea Nitrogen 8 mg/dL (7-18) Creatinine 0.7 mg/dL (0.5-1.0) Glomerular Filtration Rate Calc 95 mL/min (>90) Random Glucose 162 mg/dL (70-105) H Total Calcium 9.2 mg/dL (8.5-10.1) Troponin I High Sensitivity 90 ng/L (4-50) *H B-Type Natriuretic Peptide 484 pg/mL (0-100) H Urine Color LIGHT-YELLOW (YELLOW) Urine Appearance CLEAR (CLEAR) Urine pH 6.0 (5.0-8.0) Urine Specific [place] 1.007 (1.001-1.031) Urine Protein NEGATIVE mg/dL (NEGATIVE) Urine Glucose (UA) NEGATIVE mg/dL (NEGATIVE) Urine Ketones NEGATIVE mg/dL (NEGATIVE) Urine Occult Blood NEGATIVE (NEGATIVE) Urine Nitrate NEGATIVE (NEGATIVE) Urine Bilirubin NEGATIVE mg/dL (NEGATIVE) Urine Urobilinogen 0.2 mg/dL (0.2-1.0) Urine Leukocyte Esterase NEGATIVE Angella/uL Labs Reviewed?: Yes EKG: (+) NSR EKG Comment: 1229/EKG ATRIAL FIBRILLATION WITH RAPID VENTRICULAR RESPONSE VENTRICULAR RATE 122 PVCS AND COUPLETS RIGHT AXIS DEVIATION. T-WAVE INVERSION IN LEADS V4 FIVE AND SIX ED Course ED Course Orders Procedure Category Date Status Time Cbc With Differential LAB 08/31/25 Complete 11:57 Troponin I High LAB 08/31/25 Complete Sensitivity 11:57 Urinalysis Profile LAB 08/31/25 Complete 11:57 12 Lead Ekg Tracing- EKG 08/31/25 Complete Technical 11:57 Basic Metabolic Panel LAB 08/31/25 Complete 11:57 B-Type Natriuretic LAB 08/31/25 Complete Peptide 11:59 0.9%Nacl 1000ml (Ns PHA 08/31/25 Complete 1000ml) 13:00 Diltiazem 25mg Inj PHA 08/31/25 Complete (Cardizem 25mg Inj) 14:30 Chest 1vw RAD 08/31/25 Resulted 14:26 Current Medications Medications (Trade) Dose Ordered Sig/Cortes Route PRN Reason Start Time Stop Time Status Last Admin Dose Admin Diltiazem HCl (CARDIzem 25MG INJ) 10 mg ONCE ONCE IVP 08/31/25 14:30 08/31/25 14:31 DC 08/31/25 14:40 Sodium Chloride 1,000 ml @ 0 mls/hr ONCE ONCE IV 08/31/25 13:00 08/31/25 13:02 DC 08/31/25 14:07 Vital Signs Date Time Temp Pulse Resp B/P (MAP) Pulse Ox O2 Delivery O2 Flow Rate FiO2 08/31/25 15:04 98.4 77 18 154/100 98 Room Air* 0 21 08/31/25 14:40 81 133/83 08/31/25 14:07 98.4 84 18 133/89 95 Room Air* 0 21 08/31/25 11:54 97.5 83 18 118/77 97 Room Air 1625/VENTRICULAR RATE NOW IS 77 AFTER DILTIAZEM. 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 SHE IS AWARE OF WHAT FINDINGS WERE ON THE LABS AND EKG ALL QUESTIONS ANSWERED. ADDITIONALLY PATIENT HAS A AN ELEVATED TROPONIN HOWEVER REVIEW OF THE MEDICAL RECORD SHOWS THAT SHE HAS HAD A CHRONIC ELEVATED TROPONIN MUCH HIGHER THAN TWO DAYS OVER THE PAST SEVERAL MONTHS ON VISITS. SHE HAS NO CHEST PAIN NO BACK PAIN. STRONGLY SUSPECT THIS IS A TROPONIN LEAK SECONDARY TO ATRIAL FIBRILLATION HEART Score Response (Comments) Value EKG: Repolarization changes 1 Age: > 65yrs (+2) 2 Risk Factors: 1-2 risk factors (+1) 1 Initial Troponin: 1-3x Normal Limit (+1) 1 Total 5 Medical Decision Making MDM MDM: DIFFERENTIAL DIAGNOSIS: ACS/AMI/ARRHYTHMIAS/ELECTROLYTE IMBALANCE/DEHYDRATION RATIONALE: TESTS CONSIDERED AND ORDERED SECONDARY TO SHARED DECISION MAKING INCLUDE: PREVIOUS OUTSIDE RECORDS REVIEWED: OLD ER VISITS. RISK OF COMPLICATION AND/OR MORBIDITY OR MORTALITY OF PATIENT MANAGEMENT: NONE MEDICATIONS-PER MEDICATION RECONCILIATION NEED FOR HOSPITALIZATION: PATIENT DOES NOT MEET CRITERIA FOR HOSPITALIZATION. NONE NEED FOR EMERGENCY MAJOR/MINOR SURGERY: NO THERE ARE NO SOCIAL CONCERNS WITH THIS PATIENT. PRESCRIPTION DRUG MANAGEMENT METOPROLOL PRESCRIPTIONS WILL INCLUDE SYMPTOMATIC CARE PATIENT'S PRIOR EXTERNAL MEDICAL RECORDS FROM OTHER ER VISITS WERE REVIEWED BY ME INDICATED. PRIOR TESTING AND RESULTS FROM PREVIOUS VISITS WERE REVIEWED. PRIOR TESTS WERE TAKEN INTO ACCOUNT WITH MEDICAL DECISION MAKING AND RESOURCE UTILIZATION, INDEPENDENT HISTORIAN/HISTORIANS WERE USED TO OBTAIN COMPLETE MEDICAL HISTORY. I INDEPENDENTLY INTERPRETED THE TEST THAT WERE PERFORMED, RESULTS WERE REVIEWED BY ME AND CONSIDERED FINDINGS ON RADIOLOGY IF ORDERED. MEDICAL MANAGEMENT AND EXAMINATION INTERPRETATION DISCUSSIONS WERE HAD BY ME WITH OTHER QUALIFIED HEALTHCARE PROFESSIONALS INDICATED FOR THE PATIENT'S CARE. DX & DISP Disposition: Discharge Departure Impression: Primary Impression: Atrial fibrillation with rapid ventricular response Additional Impressions: Elevated troponin level not due to acute coronary syndrome, Chronic anemia, Elevated brain natriuretic peptide (BNP) level Condition: Stable Scripts Metoprolol Tartrate (Metoprolol Tartrate) 25 Mg Tablet 1 TAB PO BID for 30 Days, #60 TAB 0 Refills Prov: KAITY CHAMPION NP 08/31/25 Additional Instructions: FOLLOW-UP WITH PRIMARY CARE PROVIDER IN 1 TO 2 DAYS. TAKE MEDICATIONS DIRECTED HERE IN THE EMERGENCY ROOM. OKAY TO CONTINUE HOME MEDICATIONS UNLESS OTHERWISE DISCUSSED DURING YOUR VISIT IN THE EMERGENCY ROOM TODAY. RETURN TO YOUR NEAREST EMERGENCY ROOM IF SYMPTOMS WORSEN OR IF THERE IS NO IMPROVEMENT. CALL 911 IF YOU NEED IMMEDIATE ASSISTANCE. TAKE TYLENOL OR MOTRIN OVER-THE- COUNTER NEEDED AND IF NO CONTRAINDICATIONS ARE PRESENT. INCREASE ORAL HYDRATION. A WOUND CULTURE OR URINE CULTURE WAS ORDERED HERE IN THE EMERGENCY ROOM DEPARTMENT PLEASE FOLLOW-UP WITH PRIMARY CARE PROVIDER AND ADVISE THEM TO GET REPEAT PORTS FROM OUR FACILITY. IF YOU HAD ANY LUPE WRAP/SPLINTS THAT WERE APPLIED HERE, PLEASE DO NOT REMOVE THEM UNTIL YOU SEE YOUR PRIMARY CARE OR SPECIALTY. CONTINUE ALL YOUR MEDICATIONS AND TREATMENTS FROM YOUR PRIMARY CARE DOCTOR PRIOR TAKE METOPROLOL DIRECTED FOR ATRIAL FIBRILLATION. SEE YOUR CLIENT DEVELOPMENT MANAGER'S IN THE NEXT SEVERAL DAYS Referrals: NANY MCGHEE (PCP) Time of Disposition: 16:30 I have reviewed the case, and I agree with, Diagnosis and Plan KAITY CHAMPION NP Aug 31, 2025 11:59
--- NOTE | 2025-08-31 12:35 | EKG ---
[facility] Test Date: 2025-08-31 Test Time: 12:29:59 Pat Name: MATTEO BRADFORD Department: ED Room: Gender: F Casework Manager: [phone] : 1960 Requested By: KAITY CHAMPION Order Number: [id number] Reading MD: Júnior Bates Measurements Intervals [place] Rate: 122 P: 0 FL: 0 QRS: 94 QRSD: 92 T: 0 QT: 0 QTc: 0 Interpretive Statements Atrial fibrillation Paired ventricular premature complexes Right axis deviation Nonspecific T abnrm, anterolateral leads Compared to ECG 12/27/2024 09:57:49 Ventricular premature complex(es) now present Right-axis deviation now present Sinus rhythm no longer present Electronically Signed On 09-01-2025 21:28:32 CDT by Júnior Bates Please click the below link to view image of tracing.
[2025-08-31 12:36] LABS: IMMATURE GRANULOCYTE ABSOLUTE 0.01 K/uL (0-1); NUCLEATED RED BLOOD CELLS 0.0 % (0.0-0.19); PLATELET COUNT (AUTO) 207 K/uL (130-400); RED BLOOD CELL COUNT(AUTO) 3.88 MIL/uL (4.00-5.50); RED CELL DISTRIBUTION WIDTH 14.6 % (11.0-15.5); WHITE BLOOD COUNT (AUTO) 4.5 K/uL (4.8-10.8)
[2025-08-31 12:41] LABS: CREATININE 0.7 mg/dL (0.5-1.0); GLOMERULAR FILTR. RATE CALC 95.0 mL/min (>90); GLUCOSE,RANDOM 162.0 mg/dL (70-105); SODIUM SERUM 140.0 mmol/L (136-145); UREA NITROGEN, BLOOD 8.0 mg/dL (7-18)
--- NOTE | 2025-08-31 13:38 | NUR ---
PT JUST NOW PLACED IN ED [facility]. I OFFERED AND PT ACCEPTED A WARM BLANKET.
[2025-08-31] MEDS: 0.9%NACL 1000ML 1,000 ML IV ONE (14:07)
[2025-08-31 14:31] LABS: APPEARANCE,URINE CLEAR (CLEAR); GLUCOSE, URINE (UA) NEGATIVE (NEGATIVE); LEUKOCYTE ESTERASE ,URINE NEGATIVE Leu/uL (NEGATIVE); NITRATE,URINE NEGATIVE (NEGATIVE); OCCULT BLOOD,URINE NEGATIVE (NEGATIVE)
[2025-08-31 14:35] LABS: ADD UA MICROSCOPIC NO
--- NOTE | 2025-08-31 15:56 | HMCIMG ---
EXAM: CR Chest, 2 View. CLINICAL HISTORY: SOB/CHEST PAIN COMPARISON: X-ray chest 12/27/2024 FINDINGS: LUNGS: There is no mass, infiltrate, or acute pulmonary abnormality. PLEURAL SPACES: No evidence of pleural effusion or pneumothorax. MEDIASTINUM: The cardiomediastinal silhouette is within normal limits. BONES: No aggressive appearing osseous lesion seen. IMPRESSION: No acute cardiopulmonary pathology is evident. /[place]
[2025-08-31] MEDS ORDERED: METO25TA6 PO (16:32)
[2025-08-31 16:35] VITALS: BP 142/78; PULSE 72; RESP 18; TEMP 98.4; O2SAT 98
== END 2025-08-31 16:41 | disposition home or self-care (01) ==
LOC: EDH 11:53
DX: I48.91 Unspecified atrial fibrillation (principal); R79.89 Other specified abnormal findings of blood chemistry; D64.9 Anemia, unspecified; E03.9 Hypothyroidism, unspecified; E11.9 Type 2 diabetes mellitus without complications; I10 Essential (primary) hypertension; J45.909 Unspecified asthma, uncomplicated; Z79.01 Long term (current) use of anticoagulants; Z79.82 Long term (current) use of aspirin; Z79.890 Hormone replacement therapy; Z79.899 Other long term (current) drug therapy
CPT/HCPCS: 99285; 96374; 71045; 96361; 84484; 80048; 83880; 85025; 81003; 36415; 93005; J7030; J3490